=== PATIENT | female | born 1995 | race Hispanic/Latino ===

== ENCOUNTER 2018-11-08 14:57 | Emergency (ER) | payer MEDICAID ==
[2018-11-08] MEDS ORDERED: TETANUS/DIPHTHERIA TOXOID [ADULT] 0.5 ML VIAL IM ONE (15:24)
[2018-11-08] MEDS ORDERED: ACETAMINOPHEN 325 MG TAB ONE (15:32)
[2018-11-08] MEDS ORDERED: L.E.T. GEL 4%/0.5%/0.18% 3ML 3 ML/SYR SYG TP ONE (16:14)
== END 2018-11-08 17:00 | disposition home or self-care (01) ==
LOC: EDH 14:57
DX: S01.01XA Laceration without foreign body of scalp, initial encounter (principal); Z88.0 Allergy status to penicillin; Z88.6 Allergy status to analgesic agent; W18.39XA Other fall on same level, initial encounter; Y93.01 Activity, walking, marching and hiking; Y92.89 Other specified places as the place of occurrence of the external cause; Y99.8 Other external cause status
CPT/HCPCS: 12001; 70450; 81025; 90471; 90714